=== PATIENT | female | born 1990 | race Caucasian/White ===

== ENCOUNTER 2023-12-23 10:25 | Inpatient (IN) | payer OTHER ==
[~2023-12-23] VITALS: Ht 160 cm; Wt 86.2 kg
[2023-12-23 11:20] VITALS: BP 110/68
[2023-12-23] MEDS ORDERED: RINGERS SOLUTION,LACTATED 1,000 ML IV SCH ×2 (11:45→16:45)
[2023-12-23 12:00] LABS: HEMATOCRIT 34.9 % (36.0-45.00); HEMOGLOBIN 11.4 g/dL (12.0-15.00); MEAN CELL VOLUME 89.8 fL (80.00-100.00); MEAN CORPUSCULAR HEMOGLOBIN 29.3 pg (27.00-32.0); MEAN CORPUSCULAR HGB CONC 32.6 g/dl (32.0-36.0); PLATELET COUNT 249 K/uL (150-450); RED BLOOD COUNT 3.89 M/uL (4.00-6.00); RED CELL DISTRIBUTION WIDTH 13.6 % (11.5-14.5)
[2023-12-23 12:34] LABS: INR 0.96; PARTIAL THROMBOPLASTIN TIME 26.9 SECONDS (22.0-34.0); PROTHROMBIN TIME 10.5 SECONDS (9.0-11.5)
[2023-12-23] MEDS ORDERED: PRENATAL TABLE1 EAC4 PO (12:39)
[2023-12-23 13:12] LABS: ALBUMIN 2.7 gm/dL (3.4-5.0); BILIRUBIN TOTAL 0.22 mg/dL (0.3-1.2); CALCIUM 8.8 mg/dL (8.5-10.1); CREATININE SERUM 0.6 mg/dL (0.55-1.02); GFR 114.43; GLOBULINA 3.9 G/DL (2.4-3.5); POTASSIUM 4.02 mEq/L (3.5-5.1); TOTAL PROTEIN 6.6 gm/dL (6.4-8.2)
[2023-12-23] MEDS ORDERED: CITRIC ACID/SODIUM CITRATE 30 ML BLIST.PACK PO SCH (13:15)
[2023-12-23] MEDS ORDERED: CEFAZOLIN SODIUM 1,000 MG VIAL IV SCH (13:15)
[2023-12-23] MEDS ORDERED: OXYTOCIN 10 UNITS/ML VIAL ONE (14:57)
[2023-12-23] MEDS ORDERED: ERYTHROMYCIN BASE 1 GM TUBE OP ONE ×2 (14:57→17:15)
[2023-12-23] MEDS ORDERED: MORPHINE SULFATE 4 MG/ML CARTRIDGE IV PRN (16:30)
[2023-12-23] MEDS ORDERED: OXYTOCIN 1,000 ML IV ONE (16:45)
[2023-12-23] MEDS ORDERED: MORPHINE SULFATE 4 MG/ML VIAL IV ONE ×2 (16:55→17:35)
[2023-12-23] MEDS ORDERED: GABAPENTIN 300 MG CAPSULE PO SCH (17:00)
[2023-12-23] MEDS ORDERED: SIMETHICONE 125 MG CAPSULE PO SCH (17:00)
[2023-12-23] MEDS ORDERED: KETOROLAC TROMETHAMINE 30 MG VIAL IV SCH (18:00)
[2023-12-23] MEDS ORDERED: ACETAMINOPHEN 500 MG GEL..CAP PO SCH (18:00)
[2023-12-23] MEDS ORDERED: ONDANSETRON HCL 2 MG/ML VIAL IV SCH (18:00)
[2023-12-23] MEDS ORDERED: ONDANSETRON HCL 2 MG/ML VIAL ONE (18:06)
[2023-12-23] MEDS ORDERED: KETOROLAC TROMETHAMINE 30 MG VIAL ONE (18:06)
[2023-12-23 19:38] VITALS: BP 110/75
[2023-12-24 01:26] VITALS: BP 100/55
[2023-12-24 05:50] VITALS: BP 98/56
[2023-12-24 06:54] LABS: HEMATOCRIT 29.7 % (36.0-45.00); MEAN CORPUSCULAR HEMOGLOBIN 29.9 pg (27.00-32.0); MEAN CORPUSCULAR HGB CONC 33.6 g/dl (32.0-36.0); PLATELET COUNT 212 K/uL (150-450); RED BLOOD COUNT 3.34 M/uL (4.00-6.00); RED CELL DISTRIBUTION WIDTH 13.4 % (11.5-14.5)
[2023-12-24] MEDS ORDERED: KETOROLAC TROMETHAMINE 10 MG TABLET PO SCH (08:00)
[2023-12-24] MEDS ORDERED: OxyCODONE HCL 5 MG TABLET (ROXICODONE) PO PRN (08:00)
[2023-12-24] MEDS ORDERED: DOCUSATE SODIUM 100MG CAP PO SCH (09:00)
[2023-12-24 09:34] VITALS: BP 113/75
[2023-12-24 16:10] VITALS: BP 96/61
[2023-12-24 20:00] VITALS: BP 111/73
[2023-12-25 01:30] VITALS: BP 102/68
[2023-12-25 09:00] VITALS: BP 132/83
[2023-12-25] MEDS ORDERED: BISACODYL 10 MG/SUPP.RECT SUPP.RECT RECTAL ONE (12:00)
== END 2023-12-25 14:17 | disposition home or self-care (01) | DRG 788 ==
LOC: NST 10:25 → OBS/DEL 10:25 → LDR 11:44 → OB/GYN 11:44 → OBS/DEL 11:44 → O/R 15:48 → OB/GYN 16:45
PROVIDERS: Obstetrics & Gynecology; Obstetrics & Gynecology Gynecology; ADMIT Obstetrics & Gynecology Maternal & Fetal Medicine; ATTEND Obstetrics & Gynecology Maternal & Fetal Medicine
PROC: 4A1HXCZ Monitoring of Products of Conception, Cardiac Rate, External Approach (ICD-10-PCS; 2023-12-23)
PROC: 10D00Z1 Extraction of Products of Conception, Low, Open Approach (ICD-10-PCS; principal; 2023-12-23 16:00)
DX: O41.03X0 Oligohydramnios, third trimester, not applicable or unspecified (principal); O32.8XX0 Maternal care for other malpresentation of fetus, not applicable or unspecified; O36.8130 Decreased fetal movements, third trimester, not applicable or unspecified; Z3A.37 37 weeks gestation of pregnancy; Z37.0 Single live birth